=== PATIENT | male | born 1950 | race Hispanic/Latino ===

== ENCOUNTER 2017-02-21 08:42 | Outpatient (CLI) | payer MEDICARE, OTHER ==
[2017-02-21 09:52] LABS: Blood Urea Nitrogen 19 mg/dL (9-20)
[2017-02-21] MEDS ORDERED: NACL ONE (10:18)
--- NOTE | 2017-02-21 11:16 | Cat Scan Report ---
CT ANGIOGRAM CHEST CT ANGIOGRAM ABDOMEN AND PELVIS HISTORY: Aortic aneurysm. TECHNIQUE: Helical CT following IV contrast in 1.25 mm intervals. Sagittal and coronal reformatted images. Rotational MIP images. COMPARISON: There is no comparison CT chest at this facility. Correlation is made with a CT abdomen and pelvis with contrast dated 03/25/14. FINDINGS: Contrast bolus is adequate. The thoracic aorta is mildly ectatic but contains no significant atherosclerotic calcifications. No dissection. There is mild fusiform aneurysmal dilatation of the ascending aorta measuring a maximum diameter 4.7 cm on coronal image 76 and axial image 107. The aortic arch measures 3.5 cm. The descending thoracic aorta measures 3.2 cm. The abdominal aorta is normal caliber throughout measuring a maximum diameter of 2.4 cm. No abdominal aortic aneurysm or dissection. There is less than 20% stenosis throughout the thoracic and abdominal aorta. The celiac axis, SMA, BENJAMÍN, and bilateral single renal arteries are widely patent with less than 20% stenosis. The bilateral iliac systems are also widely patent with less than 20% stenosis. Heart size is normal. No pericardial effusion. A pacemaker device is in position. The lungs are clear. No parenchymal lung disease is appreciated. No thoracic mass or adenopathy. The liver, biliary system, pancreas, spleen, adrenal glands and left kidney are unremarkable. 1 or 2 tiny nonobstructing calyceal stones are suspected in the inferior right kidney. The ureters are normal course and caliber. Normal bladder. The prostate gland is unremarkable measuring 4.7 cm in diameter. The bowel loops are within normal limits given no oral contrast was administered. Normal appendix. Right hip replacement is noted. Mild degenerative changes are noted throughout the thoracolumbar spine. No fracture or suspicious bony lesion. IMPRESSION: Mild aneurysmal dilatation of the ascending aorta measuring maximum diameter of 4.7 cm. Please see above. Essentially normal CTA of the abdomen/pelvis.
== END 2017-02-21 08:43 | disposition home or self-care (01) ==
LOC: CT 08:42
PROVIDERS: ATTEND Internal Medicine
DX: I71.2 Thoracic aortic aneurysm, without rupture (principal); M47.895 Other spondylosis, thoracolumbar region; I48.91 Unspecified atrial fibrillation; E78.5 Hyperlipidemia, unspecified; Z95.0 Presence of cardiac pacemaker; Z96.641 Presence of right artificial hip joint
CPT/HCPCS: 36415; 71275; 74174; 82565; 84520; Q9967

== ENCOUNTER 2018-03-28 07:15 | Outpatient (CLI) | payer MEDICARE, OTHER ==
[2018-03-28 08:07] LABS: Blood Urea Nitrogen 24 mg/dL (9-20)
--- NOTE | 2018-03-28 10:08 | Cat Scan Report ---
CTA CHEST: HISTORY: Aortic aneurysm. COMPARISON: 02/21/17. TECHNIQUE: Helical CT in 1.25mm intervals following IV contrast. Sagittal and coronal reformatted images. Rotational MIP images. FINDINGS: Contrast bolus is satisfactory. Thyroid gland: Normal. Tracheobronchial tree: Normal. Esophagus: Normal. Heart: Normal. The 2-lead pacemaker device is unchanged in position terminating in the right atrium and right ventricle. Pericardium: Normal. Mediastinum: Mild ectasia of the thoracic aorta is again noted. No significant atherosclerotic plaques are identified. No dissection or ulceration. Dilatation of the ascending aorta has increased from 4.7 cm to 5.0 cm since 02/21/17 exam. The aortic arch is stable measuring 3.5 cm in diameter. The descending thoracic aorta is stable measuring 3.2 cm in diameter. Lung Andrea: Normal. Pleural Spaces: Normal. Musculoskeletal: Intact. Mild multilevel thoracic spondylosis is noted. The coronal images demonstrate mild levocurvature of the upper thoracic spine from the level of T1-T5 measuring approximately 11 degrees. IMPRESSION: Dilatation of the ascending aorta has increased from 4.7 cm to 5.0 cm in maximum diameter since 02/21/17.
== END 2018-03-28 07:16 | disposition home or self-care (01) ==
LOC: CT 07:15
PROVIDERS: ATTEND Internal Medicine
DX: I71.2 Thoracic aortic aneurysm, without rupture (principal); E78.5 Hyperlipidemia, unspecified; I48.91 Unspecified atrial fibrillation; E78.00 Pure hypercholesterolemia, unspecified
CPT/HCPCS: 36415; 71275; 82565; 84520; Q9967

== ENCOUNTER 2018-09-13 06:16 | Day surgery (SDC) | payer MEDICARE, OTHER ==
--- NOTE | 2018-09-12 12:40 | History and Physical Report ---
History of Present Illness Date of examination: 09/13/18 Date of admission: 09/13/2018 History of present illness: This is a 68-year-old patient who has a dilated ascending aorta and possible surgery, normal function echocardiogram with mild LVH. Patient had successful left knee replacement and V-paced, has a pacemaker. Is having a cardiac cath prior to aortic surgery at [facility]. Explained the risks and benefits and will hold Coumadin three days before the procedure. Past History Past Medical History: other (as per HPI) Medications and Allergies Allergies Allergy/AdvReac Type Severity Reaction Status Date / Time morphine AdvReac Itching Verified 03/25/14 10:23 Home Medications Medication Instructions Recorded Confirmed Last Taken Type Cholecalciferol (Vitamin D3) 5,000 unit PO DAILY 03/25/14 11/12/14 11/12/14 History [Vitamin D3 3,000 unit] Finasteride [Proscar] 5 mg PO QDAY 03/25/14 11/12/14 11/12/14 History Rosuvastatin Calcium [Crestor] 40 mg PO DAILY 03/25/14 11/12/14 11/12/14 History Aspirin [Aspirin BABY CHEW TAB] 81 mg PO DAILY 11/12/14 11/12/14 11/12/14 History Cyanocobalamin (Vitamin B-12) 1 tab PO DAILY 11/12/14 11/12/14 11/12/14 History [Vitamin B-12] Dronedarone HCl [Multaq] 2 tab PO DAILY 11/12/14 11/12/14 11/12/14 History Cholecalciferol Vit D3 [Vitamin D3] 5,000 unit PO DAILY tablet 11/13/14 Unknown Rx Cyanocobalamin [Vitamin B-12] 100 mcg PO QDAY tablet 11/13/14 Unknown Rx Dronedarone HCl [Multaq] 2 tab PO DAILY 11/13/14 Unknown Rx Finasteride [Proscar] 5 mg PO QDAY tablet 11/13/14 Unknown Rx Pantoprazole [Protonix TAB] 40 mg PO BID tablet 11/13/14 Unknown Rx Rosuvastatin (Nf) [Crestor] 40 mg PO QHS tablet 11/13/14 Unknown Rx Warfarin [Coumadin] 5 mg PO QDAY #30 11/13/14 11/12/14 11/12/14 Rx Review of Systems All systems: negative (no complaints) Physical Examination General appearance: no acute distress HEENT: Positive: PERRL, Normocephaly, Mucus Membranes Moist Neck: Positive: neck supple, trachea midline Cardiac: Positive: Reg Rate and Rhythm, S1/S2 Lungs: Positive: clear to auscultation Neuro: Positive: Grossly Intact Abdomen: Positive: Soft. Negative: Tender Skin: Negative: Rash, Wound Musculoskeletal: No Pain Extremities: Absent: edema Assessment and Plan The patient has been seen in conjunction with Dr. Kim. - Patient Problems (1) Pre-operative cardiovascular examination Status: Acute (2) Ascending aorta dilation Status: Chronic (3) S/P placement of cardiac pacemaker Status: Chronic (4) Atrial fibrillation Status: Chronic (5) CAD (coronary artery disease) Status: Chronic (6) HTN (hypertension) Status: Chronic (7) Hyperlipidemia Status: Chronic
[2018-09-13] MEDS ORDERED: ECOTRIN PO NR (06:46)
[2018-09-13] MEDS ORDERED: NACL 0.9% 500 ML 500 ML IV SCH (07:00)
[2018-09-13 07:24] LABS: Basophils % (Auto) 0.6 % (0.0-1.8); Eosinophils # (Auto) 0.4 K/mm3 (0.0-0.4); Eosinophils % (Auto) 6.4 % (0.0-4.3); Hematocrit 44.2 % (35.5-45.6); Hemoglobin 14.8 gm/dl (11.8-15.2); Lymphocytes # (Auto) 1.8 K/mm3 (1.2-5.4); Lymphocytes % (Auto) 29.9 % (13.4-35.0); Mean Corpuscular HGB Conc 34 % (32-34); Mean Corpuscular Volume 93 fl (84-94); Monocytes # (Auto) 0.7 K/mm3 (0.0-0.8); Monocytes % (Auto) 12.5 % (0.0-7.3); Platelet Count 191 K/mm3 (140-440); Red Blood Count 4.77 M/mm3 (3.65-5.03); Red Cell Distribution Width 15.1 % (13.2-15.2)
[2018-09-13 07:35] LABS: INR 1.04 (0.87-1.13); Partial Thromboplastin Time 21.7 Sec. (24.2-36.6)
[2018-09-13 08:03] LABS: BUN/Creatinine Ratio 22; Blood Urea Nitrogen 20 mg/dL (9-20); Calcium 9.4 mg/dL (8.4-10.2); Hemolysis Index 30
[2018-09-13] MEDS ORDERED: HEPARIN/NS 5000 UNIT/500ML(CATH LAB) 1,000 ML IR ONE (08:14)
[2018-09-13] MEDS: SUBLIMAZE ONE ×2 (08:36→08:44)
[2018-09-13] MEDS: VERSED ONE ×2 (08:36→08:43)
[2018-09-13] MEDS: NITROGLYCERIN SYRINGE 3 ML ONE ×2 (08:39→08:44)
[2018-09-13] MEDS: XYLOCAINE 2% INFILTRATI ONE ×2 (08:39→08:42)
[2018-09-13] MEDS: HEPARIN 10,000 UNITS/10 ML ONE ×2 (08:40→08:44)
[2018-09-13] MEDS: CALAN ONE ×2 (08:42→08:44)
--- NOTE | 2018-09-13 09:25 | Cardiac Catherization Report ---
LEFT HEART CATHETERIZATION PROCEDURE DONE BY: Sal Kim MD CLINICAL INFORMATION: This is a 68-year-old male with known history of nonobstructive coronary artery disease based on CT angio, has paroxysmal atrial fibrillation, pacemaker, has an ascending aortic root dilatation, is here for a preop prior to surgery. Procedure was done with moderate sedation with Versed and fentanyl. Total sedation time was 24 minutes, started at 8:36 a.m., finished at 9:00 a.m. FINDINGS: 1. Left heart catheterization performed via the right radial artery, sterile technique, local anesthesia, 6-Tamazight radial sheath inserted. 2. Engaged the left system with a JL3.5 catheter secondary to the dilated aorta. Left main is large and patent, bifurcates to large LAD that is patent with mild luminal irregularities in the proximal mid section. Mid to distal is patent, becomes small caliber. There is a mid portion, has mild systolic bridging noted. Diagonal 1 and 2 are small caliber vessel, patent. Circumflex is medium caliber vessel, patent from proximally and distally. OM1 and OM2 are [id number] caliber vessel that is patent. RCA engaged with JR4, it is a large dominant vessel, patent from proximally and distally. PDA and PLV are uksgs-us-[id number] caliber vessel that is patent with mild luminal irregularities. LV gram done in LATVIAN and GRAF view shows normal LV function, EF 55-60%, LVEDP of 23 mmHg, LV is 165 mmHg, aortic is 165/92. No gradient across the aortic valve on pullback, 5-Tamazight catheters all taken over guidewire, 6-Tamazight radial sheath was discontinued. Radial band applied. No hematoma, no bleeding. SUMMARY: 1. Left main patent, LAD patent, mild luminal irregularities are patent. RCA patent, mild luminal irregularities, normal LV function. 2. Continue medical management for nonobstructive coronary artery disease. JOB# [id number] RENATO/BHAVNA
--- NOTE | 2018-09-13 09:31 | Short Stay Summary ---
Short Stay Documentation Date of service: 09/13/18 Narrative H&P: pt having cardiac cath prior to possible aortic root surgery, no chest pain or sob had knee replacement recently - History Past Medical History: atrial fib, CAD, hypertension, hyperlipidemia, other (as per HPI) Past Surgical History: total knee replacement, Other (ppm) Social history: no significant social history - Allergies and Medications Current Medications: Allergies morphine Adverse Reaction (Verified 03/25/14 10:23) Itching Home Medications Medication Instructions Recorded Confirmed Last Taken Type Rosuvastatin Calcium [Crestor] 40 mg PO DAILY 03/25/14 09/13/18 09/12/18 History 40mg Aspirin [Aspirin BABY CHEW TAB] 81 mg PO DAILY 11/12/14 09/13/18 09/07/18 Histo ry 81mg Cyanocobalamin (Vitamin B-12) 1 tab PO DAILY 11/12/14 09/13/18 09/12/18 History [Vitamin B-12] 1 tab Cholecalciferol Vit D3 [Vitamin D3] 5,000 unit PO DAILY tablet 11/13/1409/13/18 05:30 Rx 5000 units Finasteride [Proscar] 5 mg PO QDAY tablet 11/13/14 09/13/18 09/12/18 Rx 5mg Warfarin [Coumadin] 5 mg PO QDAY #30 11/13/14 09/13/18 09/07/18 Rx 5mg Lorcaserin HCl [Belviq] 20 mg PO DAILY 09/13/18 09/13/18 09/13/18 05:30 History 20mg Metoprolol Xl [Metoprolol 50 mg PO DAILY 09/13/18 09/13/18 09/13/18 05:00 History SUCCINATE ER TAB] 50mg Pantoprazole [Protonix TAB] 40 mg PO DAILY 09/13/18 09/13/18 09/13/18 05:30 History 40mg Active Medications Aspirin (Ecotrin) 325 mg PO ONCE NR Stop: 09/13/18 12:00 Last Admin: 09/13/18 07:58 Dose: 325 mg Documented by: Sodium Chloride (Nacl 0.9% 500 Ml) 500 mls @ 50 mls/hr IV DIRECT SANTIAGO Stop: 09/13/18 16:59 Last Admin: 09/13/18 08:04 Dose: 50 mls/hr Documented by: - Physical exam General appearance: no acute distress Integumentary: no rash HEENT: Atraumatic, PERRLA Lungs: Clear to auscultation Heart: Regular rate Gastrointestinal: normal, normoactive bowel sounds Male Genitourinary: deferred Rectal Exam: deferred Extremities: no ischemia Neurological: Normal gait - Brief post op/procedure progress note Date of procedure: 09/13/18 Pre-op diagnosis: aortic dilatation Post-op diagnosis: same Procedure: see report Anesthesia: local Estimated blood loss: none Pathology: none - Disposition Condition at discharge: Good Disposition: [id number] TO HOME OR SELFCARE - Discharge Diagnoses (1) Ascending aorta dilation Status: Chronic (2) CAD (coronary artery disease) Status: Chronic Qualifiers: Coronary Disease-Associated Artery/Lesion type: [place] artery [place] vs. transplanted heart: [place] heart Associated angina: without angina Qualified Code(s): I25.10 - Atherosclerotic heart disease of [place] coronary artery without angina pectoris (3) HTN (hypertension) Status: Chronic Qualifiers: Hypertension type: essential hypertension Qualified Code(s): I10 - Essential (primary) hypertension (4) Hyperlipidemia Status: Chronic Qualifiers: Hyperlipidemia type: mixed hyperlipidemia Qualified Code(s): E78.2 - Mixed hyperlipidemia (5) Paroxysmal a-fib Status: Chronic Short Stay Discharge Plan Activity: advance as tolerated Diet: low fat, low cholesterol, low salt Wound: keep clean and dry Follow up with: WILL AGARWAL MD [Primary Care Provider] - 7 Days
[2018-09-13 12:12] VITALS: BP 136/92
== END 2018-09-13 12:20 | disposition home or self-care (01) ==
LOC: CATHLABREC 06:16
PROVIDERS: ATTEND Internal Medicine
DX: I25.10 Atherosclerotic heart disease of native coronary artery without angina pectoris (principal); I77.819 Aortic ectasia, unspecified site; I10 Essential (primary) hypertension; E78.5 Hyperlipidemia, unspecified; I48.0 Paroxysmal atrial fibrillation; E78.00 Pure hypercholesterolemia, unspecified; G47.30 Sleep apnea, unspecified; Z87.442 Personal history of urinary calculi; Z96.641 Presence of right artificial hip joint; Z96.652 Presence of left artificial knee joint; Z98.890 Other specified postprocedural states; Z95.0 Presence of cardiac pacemaker; Z79.899 Other long term (current) drug therapy; Z88.5 Allergy status to narcotic agent; Z79.82 Long term (current) use of aspirin; Z79.01 Long term (current) use of anticoagulants; Z98.42 Cataract extraction status, left eye
CPT/HCPCS: 36415; 80048; 85025; 85610; 85730; 93005; 93010; 93458; 99156; 99157; C1894; J1644; J2250; J3010; J7040; Q9967